=== PATIENT | female | born 1955 | race American Indian/Alaskan Native ===

== ENCOUNTER 2018-07-19 05:54 | Day surgery (SDC) | payer BC ==
[2018-07-13 11:17] VITALS: BMI 37.5
[2018-07-19] MEDS ORDERED: Propofol 10 mg/ml Inj (20 ML) ONE (07:35)
[2018-07-19] MEDS ORDERED: Midazolam 2 MG/2 ML VIAL ONE (07:35)
[2018-07-19] MEDS ORDERED: cefOXitin IV 2 gm in Dextrose 2 GM/50 ML BAG IVPB ONE (07:38)
[2018-07-19] MEDS ORDERED: HYDROmorphone 0.5 mg/0.5 ml ISec IVP PRN (08:03)
[2018-07-19 09:50] VITALS: O2SAT 100
[2018-07-19 10:05] VITALS: BP 149/95; PULSE 81; RESP 16; TEMP 98.1
--- NOTE | 2018-07-19 19:38 | OP ---
PROCEDURE DATE: 07/19/2018 PREOPERATIVE DIAGNOSIS: Postmenopausal bleeding. POSTOPERATIVE DIAGNOSIS: Postmenopausal bleeding, fibroid uterus/polyp. PROCEDURE: Hysteroscopic myomectomy/polypectomy. FINDINGS: A 0.5 cm posterior submucosal myoma/polyp. The remainder of the endometrial cavity is normal, normal tubal ostia and normal endocervical canal. SURGEON: Paul Thorpe MD ANESTHESIA: General. ESTIMATED BLOOD LOSS: Less than 1 mL. COMPLICATIONS: Nil. DESCRIPTION OF PROCEDURE: After the risks, benefits and alternatives of the planned procedure including but not limited to infection, hemorrhage, deep vein thrombosis, atelectasis, pneumonia, pulmonary embolism, damage to the bladder, damage to the ureter, renal insufficiency, renal failure, wound infection, wound dehiscence, incisional hernia, keloid formation, damage to the large and small intestine, damage to the inferior vena cava and aorta requiring extensive repair, anesthesia complications, electrolyte imbalance, possibility of , fluid overload, cerebral edema, embolism and other complications that were discussed but are not listed above had been explained to the patient and all her questions answered, informed consent was obtained. The patient was taken to the operating room in a stable condition. Under a suitable level of general analgesia, she was prepped and draped in a sterile fashion after having been placed in a dorsal lithotomy position. Bladder was emptied by straight catheterization. Examination under anesthesia revealed a normal-sized uterus, anteverted, with no adnexal masses. A weighted speculum was inserted into the vagina. The anterior lip of the cervix was grasped using a single-tooth tenaculum. The uterus was sounded to 7 cm. The cervix was dilated to #18 Hanks dilator. Hysteroscope was inserted into the uterus and using a MyoSure device, a 0.5 cm posterior submucosal myoma was resected under hysteroscopic guidance with good hemostasis. Hysteroscope was then removed and endometrial curettage was performed. Scant tissue was obtained. The patient was then transferred to the recovery room in a stable condition. Pad and instrument counts were correct x2. There were no complications. Paul Thorpe MD
== END 2018-07-19 10:13 | disposition home or self-care (01) ==
LOC: C.SDS 05:54
PROVIDERS: ATTEND Obstetrics & Gynecology Reproductive Endocrinology
DX: D25.9 Leiomyoma of uterus, unspecified (principal); N95.0 Postmenopausal bleeding
CPT/HCPCS: 58561; 88305; J0694; J2001; J2250; J2704; J3010